=== PATIENT | female | born 1990 | race Caucasian/White ===

== ENCOUNTER 2017-12-16 22:06 | Emergency (ER) | payer SELFPAY ==
[2015-03-17 11:26] VITALS: Wt 75.5 kg
[~2017-12-16 22:06] MED LIST: ACET-2327 PO; ACET5ELI PO; ADV100/50 INH; ALB17R INH; ALB18R INH; ALBUTEROL INHALER; AMOX-362 PO; AMOX500C7 PO; AMOX500T10 PO; AYGESTIN; AZIT1PAC21 PO; BENZ100C26 PO; BENZ100C4 PO; BIRTH CONTROL; BUSP30TA PO; CALC-487 PO; CEP500 PO; CEPH500T7 PO; CET10 PO; CIP500 PO; CIT20 PO; COM14R IH; CYC10 PO; CYCL-343 PO; CYCL10TA29 PO; DEPO-LUPRON; DEPOLUPRON IM; DICL-195 PO; DIPH-1 PO; DIV500ER PO; DOXY-179 PO; DOXY-228 PO; DUL20 PO; EPIN0.3P14 IM; ERYT400T73 PO; ETON68IM2; FLU44R IH; GAB300 PO; HYDR-3078 PO; HYDR-317 PO; HYDR-385 PO; HYDR-4309 PO; HYDR115S2 PO; HYDR25CA83 PO; HYDR2TAB42 PO; HYDR2TAB74 PO; IBU600 PO; IBU800 PO; IBUP-56 PO; IBUP800T37 PO; KET10 PO; KETO10TA PO; LOR5 PO; LOR5/325 PO; MED150I; MED150I IM; METH4TAB57 PO; METR-1 PO; MON10 PO; MUCINEX; MULT-1067 PO; MULT-1085 PO; MULT1TAB67 PO; NAP500; NAPR220C12 PO; NIT100 PO; NORE0.3516 PO; OND4 PO; ONDA4TAB PO; ONDA4TAB97 PO; ORAGEL; ORP100 PO; OXYC5TAB38 PO; OXYM22SP3 NS; PAN20 PO; PARO-242 PO; PER PO; PHENA200 PO; PNV1TABL92 PO; PRE20 PO; PRED20TA6 PO; PREN-85 PO; PROAIRPT IH; PROM-100 PO; TRA50 PO; TRAM-420 PO; TRAM-627 PO; TRAZ-156 PO; [UNRECOGNIZED DRUG - CODE]; [UNRECOGNIZED DRUG - CODE] PO; [UNRECOGNIZED DRUG - CODE] TD; [UNRECOGNIZED DRUG - OTHER]; [UNRECOGNIZED DRUG - OTHER] OP
--- NOTE | 2017-12-16 22:16 | ER Report ---
History and Physical Time Seen By MD: 22:15 Hx. of Stated Complaint: patient states she started having pain in her right side of chest on Saturday, she states that this morning she started having pain on left side of chest, patient just thought maybe it was heartburn, but those meds have not helped, patient states it hurts when she is breathing. HPI/ROS CHIEF COMPLAINT: Chest pain HISTORY OF PRESENT ILLNESS: 27-year-old female presents with left-sided chest pain. It actually started on the right side of her chest 2 days ago on the right side. It moved over to the left side. She's had no fever or productive cough. She's had no leg swelling or calf pain. Patient notes sharp 7/10 pain in her left chest near the lateral aspect of her breast radiating to her back and her left arm. She notes no exertional component. She recalls no injury. REVIEW OF SYSTEMS: Respiratory: No cough, no dyspnea. Cardiovascular: As above Gastrointestinal: No vomiting, no abdominal pain. Musculoskeletal: No back pain. Allergies: Coded Allergies: Sulfa (Sulfonamide Antibiotics) (Unverified Allergy, Intermediate, UNKNOWN , 12/16/17) prochlorperazine (Unverified Allergy, Intermediate, UNKNOWN, 12/16/17) promethazine (Verified Allergy, Intermediate, UNKNOWN, 12/16/17) codeine (Unverified Allergy, Unknown, UNKNOWN, 12/16/17) Home Meds Active Scripts Methocarbamol (ROBAXIN-750) 750 Mg Tablet, 1 TAB PO TID Y for muscle spasm relief, #15 Prov:PIA ALDANA DO 12/16/17 Hydrocodone Bit/Acetaminophen (HYDROCODON-ACETAMINOPHEN 5-325) 1 Each Tablet, 1 EACH PO Q4-6H Y for PAIN, #10 TAKE ONE TABLET BY MOUTH EVERY 4-6 HOURS NEEDED FOR PAIN Prov:PIA ALDANA DO 12/16/17 Prednisone (PREDNISONE) 20 Mg Tablet, 20 MG PO BID, #10 TAB Prov:CLAUDINE PARHAM 02/09/17 Hydrocodone Bit/Acetaminophen (HYDROCODON-ACETAMINOPHEN 5-325) 1 Each Tablet, 1 EACH PO Q4-6H Y for PAIN, #12 TAB Prov:CLAUDINE PARHAM 02/09/17 Diclofenac Sodium (DICLOFENAC SODIUM) 75 Mg Tablet.dr, 75 MG PO BID, #20 TAB Prov:CLAUDINE PARHAM [facility] 05/10/16 Hydrocodone Bit/Acetaminophen (NORCO 5-325 TABLET) 1 Each Tablet, 1 EACH PO Q4- 6H Y for PAIN, #12 TAB Prov:CLAUDINE PARHAM [facility] 05/10/16 Cephalexin 500 Mg Tab (KEFLEX 500 MG TAB) 500 Mg Tablet, 500 MG PO Q6H, #28 TAB Prov:CLAUDINE PARHAM [facility] 05/10/16 Tramadol Hcl (TRAMADOL HCL) 50 Mg Tablet, 50-100 MG PO Q4-6H for PAIN, #20 TAB Prov:SHAY NELSON 04/11/16 Ondansetron (ZOFRAN ODT) 4 Mg Tab.rapdis, 4 MG PO Q6-8H for Nausea, #15 TAB.EVON Prov:SHAY NELSON 04/11/16 Cyclobenzaprine Hcl (CYCLOBENZAPRINE HCL) 10 Mg Tablet, 10 MG PO TID, #21 TAB Prov:SHAY NELSON 04/11/16 Ibuprofen (IBUPROFEN) 800 Mg Tablet, 1 TAB PO Q8H for PAIN, #60 TAB Prov:SHAY NELSON 04/11/16 Hydroxyzine Pamoate (VISTARIL) 25 Mg Capsule, 25-50 MG PO Q6H for PAIN, #30 CAPSULE Prov:SHAY NELSON 04/11/16 Oxycodone Hcl (OXYCODONE HCL) 5 Mg Tablet, 5 MG PO Q4H Y for PAIN, #15 Prov:PIA ALDANA DO 02/06/16 Reviewed Nurses Notes: Yes Old Medical Records Reviewed: Yes Hx Smoking: Yes Smoking Status: Current: Every Day Smoker Exposure to Second Hand Smoke?: Yes Hx Substance Use Disorder: No Hx Alcohol Use: Yes Constitutional Vital Sign - Last 24 Hours 12/16/17 12/16/17 12/16/17 12/16/17 22:11 22:21 22:30 22:41 Temp 98.1 Pulse 69 59 Resp 24 16 B/P (MAP) 125/76 114/66 (82) 108/63 (78) Pulse Ox 96 97 12/16/17 12/16/17 12/16/17 23:00 23:06 23:11 Pulse 61 60 Resp 10 7 B/P (MAP) 109/81 (90) Pulse Ox 97 97 Physical Exam General Appearance: The patient is alert, has no immediate need for airway protection and no current signs of toxicity. HEENT: Pupils equal and round no injection. TMs normal, oropharynx without redness or exudate Respiratory: Chest is non tender, lungs are clear to auscultation.+ Chest wall tenderness Cardiac: regular rate and rhythm Gastrointestinal: Abdomen is soft and non tender, no masses, bowel sounds normal. Musculoskeletal: Neck: Neck is supple and non tender. Extremities have full range of motion and are non tender. Skin: No rashes or lesions. DIFFERENTIAL DIAGNOSIS: After history and physical exam differential diagnosis was considered for chest pain including but not limited to myocardial ischemia, pericarditis pulmonary embolus, chest wall pain, pleural inflammation and pulmonary infectious causes. Medical Decision Making Data Points Result Diagram: 12/16/17221912/16/172219 Laboratory Hematology Test 12/16/17 22:20 Red Blood Count 5.00 M/uL (4.17-5.56) Mean Corpuscular Volume 88.8 fL (80.0-96.0) Mean Corpuscular Hemoglobin 30.5 pg (26.0-33.0) Mean Corpuscular Hemoglobin Concent 34.3 g/dL (32.0-36.0) Red Cell Distribution Width 13.4 % (11.5-14.5) Mean Platelet Volume 7.1 fL (7.2-11.1) Neutrophils (%) (Auto) 67.0 % (39.4-72.5) Lymphocytes (%) (Auto) 24.1 % (17.6-49.6) Monocytes (%) (Auto) 6.1 % (4.1-12.4) Eosinophils (%) (Auto) 1.9 % (0.4-6.7) Basophils (%) (Auto) 0.9 % (0.3-1.4) Nucleated RBC Relative Count (auto) 0.0 /100WBC Neutrophils # (Auto) 8.6 K/uL (2.0-7.4) Lymphocytes # (Auto) 3.1 K/uL (1.3-3.6) Monocytes # (Auto) 0.8 K/uL (0.3-1.0) Eosinophils # (Auto) 0.2 K/uL (0.0-0.5) Basophils # (Auto) 0.1 K/uL (0.0-0.1) Nucleated RBC Absolute Count (auto) 0.00 K/uL D-Dimer Quantitative (PE/DVT) < 0.27 ug/ml (0-0.50) Sodium Level 142 mmol/L (137-145) Potassium Level 3.3 mmol/L (3.5-5.0) Chloride Level 104 mmol/L (98-107) Carbon Dioxide Level 28 mmol/L (22-31) Blood Urea Nitrogen 8 mg/dl (7-18) Creatinine 0.80 mg/dl (0.52-1.04) Glomerular Filtration Rate Calc > 60.0 Random Glucose 89 mg/dl (75-110) Calcium Level 9.2 mg/dl (8.4-10.2) Total Bilirubin 0.5 mg/dl (0.2-1.3) Aspartate Amino Transf (AST/SGOT) 23 U/L (0-35) Alanine Aminotransferase (ALT/SGPT) 28 U/L (0-56) Alkaline Phosphatase 64 U/L (0-126) Troponin I < 0.012 ng/ml Total Protein 7.0 g/dl (6.3-8.2) Albumin 3.9 g/dl (3.5-5.0) Human Chorionic Gonadotropin, Qual Negative (NEGATIVE) Chemistry Test 12/16/17 22:20 White Blood Count 12.8 k/uL (4.5-11.0) Red Blood Count 5.00 M/uL (4.17-5.56) Hemoglobin 15.2 g/dL (12.0-16.0) Hematocrit 44.4 % (34.0-47.0) Mean Corpuscular Volume 88.8 fL (80.0-96.0) Mean Corpuscular Hemoglobin 30.5 pg (26.0-33.0) Mean Corpuscular Hemoglobin Concent 34.3 g/dL (32.0-36.0) Red Cell Distribution Width 13.4 % (11.5-14.5) Platelet Count 343 K/uL (150-450) Mean Platelet Volume 7.1 fL (7.2-11.1) Neutrophils (%) (Auto) 67.0 % (39.4-72.5) Lymphocytes (%) (Auto) 24.1 % (17.6-49.6) Monocytes (%) (Auto) 6.1 % (4.1-12.4) Eosinophils (%) (Auto) 1.9 % (0.4-6.7) Basophils (%) (Auto) 0.9 % (0.3-1.4) Nucleated RBC Relative Count (auto) 0.0 /100WBC Neutrophils # (Auto) 8.6 K/uL (2.0-7.4) Lymphocytes # (Auto) 3.1 K/uL (1.3-3.6) Monocytes # (Auto) 0.8 K/uL (0.3-1.0) Eosinophils # (Auto) 0.2 K/uL (0.0-0.5) Basophils # (Auto) 0.1 K/uL (0.0-0.1) Nucleated RBC Absolute Count (auto) 0.00 K/uL D-Dimer Quantitative (PE/DVT) < 0.27 ug/ml (0-0.50) Glomerular Filtration Rate Calc > 60.0 Calcium Level 9.2 mg/dl (8.4-10.2) Total Bilirubin 0.5 mg/dl (0.2-1.3) Aspartate Amino Transf (AST/SGOT) 23 U/L (0-35) Alanine Aminotransferase (ALT/SGPT) 28 U/L (0-56) Alkaline Phosphatase 64 U/L (0-126) Troponin I < 0.012 ng/ml Total Protein 7.0 g/dl (6.3-8.2) Albumin 3.9 g/dl (3.5-5.0) Human Chorionic Gonadotropin, Qual Negative (NEGATIVE) Coagulation Test 12/16/17 22:20 D-Dimer Quantitative (PE/DVT) < 0.27 ug/ml EKG/Imaging EKG Interpretation 12 lead EK Rhythm: NSR with sinus arrhythmia, rate 70 bpm [place]: Rightward axis QRS: normal ST segments: normal, no evidence of ischemia or dysrhythmia Imaging X-ray: Two-view chest x-ray was obtained. I viewed the images myself on the PACS system. My interpretation of the images is: Infiltrate, no effusion, normal mediastinum. The radiologist interpretation had no clinically significant variation from this interpretation. ED Course/Re-evaluation ED Course Patient was admitted to an examination room. H&P was done. The differential diagnoses was considered. Patient with fairly sharp acute left-sided chest pain. It started 2 days ago . It started on the right side and moved over. Patient's had no fever, chills or productive cough. It seems more musculoskeletal in nature. Patient's EKG, troponin and d-dimer are negative. Patient's medicated with Toradol, Zofran and fentanyl 50 Daryl or grams IV. She' ll be discharged home on Robaxin and hydrocodone. Patient advised to take ibuprofen 600 mg 3 times daily and apply heating pad to the affected area. Patient advised to follow-up with primary care if unimproved in 3-5 days. Decision to Disposition Date: Dec 16, 2017 Decision to Disposition Time: 22:51 Depart Departure Latest Vital Signs Vital Signs Date Time Temp Pulse Resp B/P (MAP) Pulse Ox O2 Delivery O2 Flow Rate FiO2 12/16/17 23:11 60 7 97 12/16/17 23:00 109/81 (90) 12/16/17 22:11 98.1 Impression: Primary Impression: Chest wall pain Additional Impression: Back pain Condition: Improved Disposition: HOME OR SELF-CARE Referrals: TERESA GUZMAN MD, FARRUKH MD New Scripts Methocarbamol (ROBAXIN-750) 750 Mg Tablet 1 TAB PO TID Y for muscle spasm relief, #15 Prov: PIA ALDANA DO 12/16/17 Hydrocodone Bit/Acetaminophen (HYDROCODON-ACETAMINOPHEN 5-325) 1 Each Tablet 1 EACH PO Q4-6H Y for PAIN, #10 TAKE ONE TABLET BY MOUTH EVERY 4-6 HOURS NEEDED FOR PAIN Prov: PIA ALDANA DO 12/16/17 Patient Instructions: Chest Wall Pain (GEN), Thoracic Back Strain (ED) Additional Instructions: Take ibuprofen 200 mg 3-4 tablets 3 times a day with food Apply heating pad to your back and chest Use medications as prescribed Follow-up with primary care if unimproved in 3-5 days Problem Qualifiers Additional Impression: Back pain Back pain location: thoracic back pain Chronicity: acute Back pain laterality: left Qualified Codes: M54.6 - Pain in thoracic spine PIA ALDANA DO Dec 16, 2017 22:16
[2017-12-16] MEDS ORDERED: KETOROLAC 30 MG/ML VIAL IVP ONE (22:20)
[2017-12-16 22:30] LABS: PLATELET COUNT, AUTOMATED 343 K/uL (150-450)
[2017-12-16] MEDS ORDERED: fentaNYL CITR 100 MCG/2 ML AMP IVP ONE (22:50)
[2017-12-16] MEDS ORDERED: LOR5/325 PO (22:54)
[2017-12-16] MEDS ORDERED: METH-543 PO (22:54)
[2017-12-16] MEDS ORDERED: ACET/HYDROC 5/325MG TH ER ONLY 2 TAB/BOTTLE PO ONE (22:55)
--- NOTE | 2017-12-16 22:58 | EKG ---
FACILITY: [facility] - [place] PATIENT NAME: CORKY MURILLO : [id number] MR: [id number] V: [id number] EXAM DATE: ORDERING PHYSICIAN: PIA ALDANA TECHNOLOGIST: Test Reason : Blood Pressure : / mmHG Vent. Rate : 070 BPM Atrial Rate : 070 BPM P-R Int : 162 ms QRS Dur : 088 ms QT Int : 426 ms P-R-T Axes : 070 090 065 degrees QTc Int : 460 ms Normal sinus rhythm with sinus arrhythmia Rightward axis Borderline ECG No previous ECGs available Confirmed by JOZEF HAWLEY ([id number]) on 12/17/2017 6:28:04 AM Referred By: Confirmed By:JOZEF HAWLEY
[2017-12-16 23:00] VITALS: BP 109/81
--- NOTE | 2017-12-16 23:12 | RADIOLOGY IMAGING REPORT ---
[place] [facility] [place] NAME: Ju Cabrera : 1990 MR: [id number] V: [id number] EXAM DATE: ORDERING PHYSICIAN: PIA ALDANA TECHNOLOGIST: [place] [facility] [place] Ju Cabrera : 1990 Visit/Account:[id number] Date of Sevice: 12/16/2017 TWO VIEW CHEST 12/16/2017 10:20 PM. INDICATION: Sudden onset chest pain. COMPARISON: 04/11/2016. FINDINGS: Lungs are well-expanded. The lungs are clear. No pneumothorax or pleural effusion. Pulmo nary vasculature is unremarkable. Heart size is normal. IMPRESSION: Normal. Report Dictated By: Satish Mccollum MD at 12/16/2017 11:07 PM Report E-Signed By: Satish Mccollum MD at 12/16/2017 11:09 PM WSN:[id number]
== END 2017-12-16 23:30 | disposition home or self-care (01) ==
LOC: ER 22:21
DX: R07.89 Other chest pain (principal); M54.6 Pain in thoracic spine; F17.210 Nicotine dependence, cigarettes, uncomplicated
CPT/HCPCS: 71046; 84484; 84703; 85025; 85379; 93005; 96374; 96375; 99284; J1885; J3010; 82040; 82247; 82310; 82374; 82435; 82565; 82947; 84075; 84132; 84155; 84295; 84450; 84460; 84520

== ENCOUNTER 2018-02-11 12:47 | Emergency (ER) | payer SELFPAY ==
[2015-03-17 11:26] VITALS: Wt 75.5 kg
[~2018-02-11 12:47] MED LIST changes: +METH-543 PO; -TRAZ-156 PO; +TRAZ50TA34 PO
[2018-02-11 12:55] VITALS: BP 114/83
--- NOTE | 2018-02-11 13:11 | ER Report ---
History and Physical Time Seen By MD: 13:10 Hx. of Stated Complaint: Dental pain. 1000mg Tyelnol and 600mg Ibuprofen at 1200 HPI/ROS CHIEF COMPLAINT: Tooth pain HISTORY OF PRESENT ILLNESS: 27-year-old female patient presents to emergency room with complaint of dental pain. Patient states that this tooth has been bothering her for the past several days. She states she's tried Anbesol and Orajel with no improvement. Patient states she is taken Tylenol ibuprofen also if no improvement. Patient states that she would just like something to help so she can go to work this evening. Patient denies having any fevers, chills, nausea, vomiting or diarrhea. Patient states that her pain is significant. Allergies: Coded Allergies: Sulfa (Sulfonamide Antibiotics) (Unverified Allergy, Intermediate, UNKNOWN , 02/11/18) prochlorperazine (Unverified Allergy, Intermediate, UNKNOWN, 02/11/18) promethazine (Verified Allergy, Intermediate, UNKNOWN, 02/11/18) codeine (Unverified Allergy, Unknown, UNKNOWN, 02/11/18) Home Meds Active Scripts Hydrocodone Bit/Acetaminophen (HYDROCODON-ACETAMINOPHEN 5-325) 1 Each Tablet, 1 EACH PO Q4-6H Y for PAIN, #6 TAB Prov:CLAUDINE PARHAM [facility] 02/11/18 Amoxicillin 500 Mg Tab (AMOXICILLIN 500 MG TAB) 500 Mg Tablet, 1 TAB PO Q8H, # 30 TAB Prov:CLAUDINE PARHAM [employer] 02/11/18 Discontinued Scripts Methocarbamol (ROBAXIN-750) 750 Mg Tablet, 1 TAB PO TID Y for muscle spasm relief, #15 Prov:PIA ALDANA DO 12/16/17 Hydrocodone Bit/Acetaminophen (HYDROCODON-ACETAMINOPHEN 5-325) 1 Each Tablet, 1 EACH PO Q4-6H Y for PAIN, #10 TAKE ONE TABLET BY MOUTH EVERY 4-6 HOURS NEEDED FOR PAIN Prov:PIA ALDANA DO 12/16/17 Prednisone (PREDNISONE) 20 Mg Tablet, 20 MG PO BID, #10 TAB Prov:CLAUDINE PARHAM [facility] 02/09/17 Hydrocodone Bit/Acetaminophen (HYDROCODON-ACETAMINOPHEN 5-325) 1 Each Tablet, 1 EACH PO Q4-6H Y for PAIN, #12 TAB Prov:CLAUDINE PARHAM [facility] 02/09/17 Diclofenac Sodium (DICLOFENAC SODIUM) 75 Mg Tablet.dr, 75 MG PO BID, #20 TAB Prov:CLAUDINE PARHAM [facility] 05/10/16 Hydrocodone Bit/Acetaminophen (NORCO 5-325 TABLET) 1 Each Tablet, 1 EACH PO Q4- 6H Y for PAIN, #12 TAB Prov:CLAUDINE PARHAM [facility] 05/10/16 Cephalexin 500 Mg Tab (KEFLEX 500 MG TAB) 500 Mg Tablet, 500 MG PO Q6H, #28 TAB Prov:CLAUDINE PARHAM [facility] 05/10/16 Tramadol Hcl (TRAMADOL HCL) 50 Mg Tablet, 50-100 MG PO Q4-6H for PAIN, #20 TAB Prov:SHAY NELSON 04/11/16 Ondansetron (ZOFRAN ODT) 4 Mg Tab.rapdis, 4 MG PO Q6-8H for Nausea, #15 TAB.EVON Prov:SHAY NELSON 04/11/16 Cyclobenzaprine Hcl (CYCLOBENZAPRINE HCL) 10 Mg Tablet, 10 MG PO TID, #21 TAB Prov:SHAY NELSON 04/11/16 Ibuprofen (IBUPROFEN) 800 Mg Tablet, 1 TAB PO Q8H for PAIN, #60 TAB Prov:SHAY NELSON 04/11/16 Hydroxyzine Pamoate (VISTARIL) 25 Mg Capsule, 25-50 MG PO Q6H for PAIN, #30 CAPSULE Prov:SHAY NELSON 04/11/16 Oxycodone Hcl (OXYCODONE HCL) 5 Mg Tablet, 5 MG PO Q4H Y for PAIN, #15 Prov:PIA ALDANA DO 02/06/16 Past Medical/Surgical History Patient has a past medical history of migraines, asthma, pneumonia, reflux, back pain, alcohol use, anxiety. Patient has a surgical history of hysterectomy, laparoscopy, deviated septum, tonsillectomy. Patient has a family medical history of cancer, stroke, diabetes Reviewed Nurses Notes: Yes Hx Smoking: Yes Smoking Status: Current: Every Day Smoker Exposure to Second Hand Smoke?: Yes Hx Substance Use Disorder: No Hx Alcohol Use: Yes Constitutional Vital Sign - Last 24 Hours 02/11/18 12:55 Pulse 95 Resp 22 B/P (MAP) 114/83 Pulse Ox 97 Physical Exam General appearance: Alert no distress. Patient is tearful. Respiratory: Chest is non tender, lungs are clear to auscultation. Cardiac: Regular rate and rhythm ENT: Tympanic membranes are pearly-guzman, auditory canals are patent, mucous membranes are moist. Patient has port intention with several cavities. Tooth #6 is broken off and tender. DIFFERENTIAL DIAGNOSIS: After history and physical exam differential diagnosis was considered for dental abscess, dental infection. Medical Decision Making ED Course/Re-evaluation ED Course Patient was admitted to an exam room, history and physical were obtained. Differential diagnoses were considered. On examination patient has poor dentition, tooth #6 is broken off, is tender to touch. I offered a dental block which patient agreed to. Patient was treated with 2.5 mL of 0.5% of bupivacaine and 2.5 mL of lidocaine with epi. Patient stated that that did help for short. Time, however she felt like the pain with certain come back. We will go ahead and discharge her home at this time with a prescription for antibiotics, amoxicillin and a limited supply of pain medication. Patient is follow-up with a dentist as soon as possible. Decision to Disposition Date: Feb 11, 2018 Decision to Disposition Time: 13:23 Depart Departure Latest Vital Signs Vital Signs Date Time Temp Pulse Resp B/P (MAP) Pulse Ox O2 Delivery O2 Flow Rate FiO2 02/11/18 12:55 95 22 114/83 97 Impression: Primary Impression: Toothache Condition: Improved Disposition: HOME OR SELF-CARE New Scripts Hydrocodone Bit/Acetaminophen (HYDROCODON-ACETAMINOPHEN 5-325) 1 Each Tablet 1 EACH PO Q4-6H Y for PAIN, #6 TAB Prov: CLAUDINE PARHAM 02/11/18 Amoxicillin 500 Mg Tab (AMOXICILLIN 500 MG TAB) 500 Mg Tablet 1 TAB PO Q8H, #30 TAB Prov: CLAUDINE PARHAM 02/11/18 Patient Instructions: Toothache (ED) Additional Instructions: You may take Ibuprofen in addition to the pain medication as needed for pain. Rinse mouth with warm salt water after every meal. Eat soft foods. Follow up with your dentist as soon as possible, call to make an appointment. Return to the ER if condition worsens. CLAUDINE PARHAM Feb 11, 2018 13:10
[2018-02-11] MEDS ORDERED: AMOX500T10 PO (13:21)
[2018-02-11] MEDS ORDERED: HYDR-385 PO (13:23)
== END 2018-02-11 13:55 | disposition home or self-care (01) ==
LOC: ER 13:03
DX: K08.89 Other specified disorders of teeth and supporting structures (principal)
CPT/HCPCS: 96372

== ENCOUNTER 2018-03-24 08:43 | Emergency (ER) | payer SELFPAY ==
[2015-03-17 11:26] VITALS: Wt 75.5 kg
[2018-03-24] MEDS ORDERED: NS(*) 0.9% 1000 ML BAG 1,000 ML IV ONE (09:00)
[2018-03-24] MEDS ORDERED: KETOROLAC 15 MG/ML VIAL IVP ONE (09:00)
[2018-03-24 09:07] LABS: PLATELET COUNT, AUTOMATED 355 K/uL (150-450)
[2018-03-24 10:00] VITALS: BP 111/82
--- NOTE | 2018-03-24 10:12 | ER Report ---
History and Physical Time Seen By MD: 09:00 Hx. of Stated Complaint: RLQ PAIN AND DIARRHEA FOR TWO WEEKS. HPI/ROS CHIEF COMPLAINT: lower abdominal pain HISTORY OF PRESENT ILLNESS: Patient is status post partial hysterectomy due to endometriosis and bleeding, and presents with 2 weeks of right adnexal pain that she states has been constant, not associated with movement, causing some nausea, associated with loose stools that are not bloody or black. Pt has had similar; not sudden onset, not worst of life. No vomiting, no fevers. REVIEW OF SYSTEMS: Constitutional: No fever, no chills. Eyes: No discharge. ENT: No sore throat. Cardiovascular: No chest pain, no palpitations. Respiratory: No cough, no shortness of breath. Gastrointestinal: nausea, loose bowel movements. Genitourinary: No hematuria. Musculoskeletal: No back pain. Skin: No rashes. Neurological: No headache. Remainder of the 14 system rev: Yes Allergies: Coded Allergies: Sulfa (Sulfonamide Antibiotics) (Unverified Allergy, Intermediate, UNKNOWN, 03/24/18) prochlorperazine (Unverified Allergy, Intermediate, UNKNOWN, 03/24/18) promethazine (Verified Allergy, Intermediate, UNKNOWN, 03/24/18) codeine (Unverified Allergy, Unknown, UNKNOWN, 03/24/18) Home Meds Discontinued Scripts Hydrocodone Bit/Acetaminophen (HYDROCODON-ACETAMINOPHEN 5-325) 1 Each Tablet, 1 EACH PO Q4-6H PRN for PAIN, #6 TAB Prov:CLAUDINE PARHAM 02/11/18 Amoxicillin 500 Mg Tab (AMOXICILLIN 500 MG TAB) 500 Mg Tablet, 1 TAB PO Q8H, #30 TAB Prov:CLAUDINE PARHAM 02/11/18 Reviewed Nurses Notes: Yes Hx Smoking: Yes Smoking Status: Current: Every Day Smoker Exposure to Second Hand Smoke?: Yes Hx Substance Use Disorder: No Hx Alcohol Use: Yes Constitutional Vital Sign - Last 24 Hours 03/24/18 03/24/18 03/24/18 03/24/18 08:46 08:46 09:00 09:15 Temp 98.8 Pulse 74 76 67 Resp 18 B/P (MAP) 109/76 (87) 109/76 114/70 (85) Pulse Ox 95 99 96 O2 Delivery Room Air 03/24/18 09:30 Pulse 64 B/P (MAP) 99/67 (78) Pulse Ox 97 Physical Exam General Appearance: The patient is alert, has no immediate need for airway protection and no signs of toxicity. [ ] Eyes: Pupils equal and round no pallor or injection. ENT, Mouth: Mucous membranes are moist. Respiratory: There are no retractions, lungs are clear to auscultation. Cardiovascular: Regular rate and rhythm. [ ] Gastrointestinal: right adnex ttp, no rlq or abdominal ttp. Neurological: alert, oriented x 3 Skin: Warm and dry, no rashes. Musculoskeletal: Neck is supple non tender. Extremities are nontender, nonswollen and have full range of motion. DIFFERENTIAL DIAGNOSIS: After history and physical exam differential diagnosis was considered for ovarian torsion, cyst, toa, stump appendicitis or other emergent etiology. Medical Decision Making Data Points Result Diagram: 03/24/18 0850 03/24/18 0850 Laboratory Hematology Test 03/24/18 08:50 03/24/18 09:44 Red Blood Count 5.10 M/uL (4.17-5.56) Mean Corpuscular Volume 89.0 fL (80.0-96.0) Mean Corpuscular Hemoglobin 29.9 pg (26.0-33.0) Mean Corpuscular Hemoglobin Concent 33.6 g/dL (32.0-36.0) Red Cell Distribution Width 14.0 % (11.5-14.5) Mean Platelet Volume 7.5 fL (7.2-11.1) Neutrophils (%) (Auto) 65.3 % (39.4-72.5) Lymphocytes (%) (Auto) 25.5 % (17.6-49.6) Monocytes (%) (Auto) 6.7 % (4.1-12.4) Eosinophils (%) (Auto) 1.7 % (0.4-6.7) Basophils (%) (Auto) 0.8 % (0.3-1.4) Nucleated RBC Relative Count (auto) 0.0 /100WBC Neutrophils # (Auto) 4.6 K/uL (2.0-7.4) Lymphocytes # (Auto) 1.8 K/uL (1.3-3.6) Monocytes # (Auto) 0.5 K/uL (0.3-1.0) Eosinophils # (Auto) 0.1 K/uL (0.0-0.5) Basophils # (Auto) 0.1 K/uL (0.0-0.1) Nucleated RBC Absolute Count (auto) 0.00 K/uL Sodium Level 142 mmol/L (137-145) Potassium Level 4.1 mmol/L (3.5-5.0) Chloride Level 107 mmol/L (98-107) Carbon Dioxide Level 26 mmol/L (22-31) Blood Urea Nitrogen 14 mg/dl (7-18) Creatinine 0.80 mg/dl (0.52-1.04) Glomerular Filtration Rate Calc > 60.0 Random Glucose 81 mg/dl (75-110) Calcium Level 9.5 mg/dl (8.4-10.2) Total Bilirubin 1.0 mg/dl (0.2-1.3) Aspartate Amino Transf (AST/SGOT) 17 U/L (0-35) Alanine Aminotransferase (ALT/SGPT) 24 U/L (0-56) Alkaline Phosphatase 64 U/L (0-126) Total Protein 7.4 g/dl (6.3-8.2) Albumin 4.2 g/dl (3.5-5.0) Human Chorionic Gonadotropin, Qual Negative (NEGATIVE) Urine Color Yellow Urine Clarity Slightly-cloudy Urine pH 6.0 pH (4.8-9.5) Urine Specific [place] 1.017 Urine Protein Negative mg/dL (NEGATIVE) Urine Glucose (UA) Negative mg/dL (NEGATIVE) Urine Ketones Negative mg/dL (NEGATIVE) Urine Blood Negative (NEGATIVE) Urine Nitrite Negative (NEGATIVE) Urine Bilirubin Negative (NEGATIVE) Urine Urobilinogen 2.0 mg/dL (0.2-1.9) Urine Leukocyte Esterase Negative (NEGATIVE) Urine RBC 1 /HPF (0-2/HPF) Urine WBC 1 /HPF (0-5/HPF) Urine Squamous Epithelial Cells Many /LPF (</=FEW) Urine Bacteria Few /HPF (NONE-FEW) Urine Mucus Few /HPF (NONE-FEW) Chemistry Test 03/24/18 08:50 03/24/18 09:44 White Blood Count 7.0 k/uL (4.5-11.0) Red Blood Count 5.10 M/uL (4.17-5.56) Hemoglobin 15.2 g/dL (12.0-16.0) Hematocrit 45.4 % (34.0-47.0) Mean Corpuscular Volume 89.0 fL (80.0-96.0) Mean Corpuscular Hemoglobin 29.9 pg (26.0-33.0) Mean Corpuscular Hemoglobin Concent 33.6 g/dL (32.0-36.0) Red Cell Distribution Width 14.0 % (11.5-14.5) Platelet Count 355 K/uL (150-450) Mean Platelet Volume 7.5 fL (7.2-11.1) Neutrophils (%) (Auto) 65.3 % (39.4-72.5) Lymphocytes (%) (Auto) 25.5 % (17.6-49.6) Monocytes (%) (Auto) 6.7 % (4.1-12.4) Eosinophils (%) (Auto) 1.7 % (0.4-6.7) Basophils (%) (Auto) 0.8 % (0.3-1.4) Nucleated RBC Relative Count (auto) 0.0 /100WBC Neutrophils # (Auto) 4.6 K/uL (2.0-7.4) Lymphocytes # (Auto) 1.8 K/uL (1.3-3.6) Monocytes # (Auto) 0.5 K/uL (0.3-1.0) Eosinophils # (Auto) 0.1 K/uL (0.0-0.5) Basophils # (Auto) 0.1 K/uL (0.0-0.1) Nucleated RBC Absolute Count (auto) 0.00 K/uL Glomerular Filtration Rate Calc > 60.0 Calcium Level 9.5 mg/dl (8.4-10.2) Total Bilirubin 1.0 mg/dl (0.2-1.3) Aspartate Amino Transf (AST/SGOT) 17 U/L (0-35) Alanine Aminotransferase (ALT/SGPT) 24 U/L (0-56) Alkaline Phosphatase 64 U/L (0-126) Total Protein 7.4 g/dl (6.3-8.2) Albumin 4.2 g/dl (3.5-5.0) Human Chorionic Gonadotropin, Qual Negative (NEGATIVE) Urine Color Yellow Urine Clarity Slightly-cloudy Urine pH 6.0 pH (4.8-9.5) Urine Specific [place] 1.017 Urine Protein Negative mg/dL (NEGATIVE) Urine Glucose (UA) Negative mg/dL (NEGATIVE) Urine Ketones Negative mg/dL (NEGATIVE) Urine Blood Negative (NEGATIVE) Urine Nitrite Negative (NEGATIVE) Urine Bilirubin Negative (NEGATIVE) Urine Urobilinogen 2.0 mg/dL (0.2-1.9) Urine Leukocyte Esterase Negative (NEGATIVE) Urine RBC 1 /HPF (0-2/HPF) Urine WBC 1 /HPF (0-5/HPF) Urine Squamous Epithelial Cells Many /LPF (</=FEW) Urine Bacteria Few /HPF (NONE-FEW) Urine Mucus Few /HPF (NONE-FEW) Urinalysis Test 03/24/18 09:44 Urine Color Yellow Urine Clarity Slightly-cloudy Urine pH 6.0 pH (4.8-9.5) Urine Specific [place] 1.017 Urine Protein Negative mg/dL (NEGATIVE) Urine Glucose (UA) Negative mg/dL (NEGATIVE) Urine Ketones Negative mg/dL (NEGATIVE) Urine Blood Negative (NEGATIVE) Urine Nitrite Negative (NEGATIVE) Urine Bilirubin Negative (NEGATIVE) Urine Urobilinogen 2.0 mg/dL (0.2-1.9) Urine Leukocyte Esterase Negative (NEGATIVE) Urine RBC 1 /HPF (0-2/HPF) Urine WBC 1 /HPF (0-5/HPF) Urine Squamous Epithelial Cells Many /LPF (</=FEW) Urine Bacteria Few /HPF (NONE-FEW) Urine Mucus Few /HPF (NONE-FEW) ED Course/Re-evaluation ED Course Patient presents with 2 weeks of ongoing symptoms that have not acutely worsened. While I considered the diagnosis as above, low likelihood for emergent etiology especially given that she is status post hysterectomy and has not had vaginal discharge, and status post appendectomy. No peritoneal signs on exam, labs and ultrasound unremarkable. On reassessment patient is comfortable. At this point I recommend follow-up with primary physician and fitting room associate and reevaluation as well as strict return precautions. Patient is comfortable with this plan. Decision to Disposition Date: Mar 24, 2018 Decision to Disposition Time: 10:12 Depart Departure Latest Vital Signs Vital Signs Date Time Temp Pulse Resp B/P (MAP) Pulse Ox O2 Delivery O2 Flow Rate FiO2 03/24/18 09:30 64 99/67 (78) 97 03/24/18 08:46 98.8 18 Room Air Impression: Primary Impression: Abdominal pain Condition: Improved Disposition: HOME OR SELF-CARE New Scripts No Active Prescriptions or Reported Meds Patient Instructions: Pelvic Pain in Women (DC) Problem Qualifiers Primary Impression: Abdominal pain Abdominal location: right lower quadrant Qualified Codes: R10.31 - Right lower quadrant pain JUAN C TIDWELL MD Mar 24, 2018 10:12
--- NOTE | 2018-03-24 10:26 | RADIOLOGY IMAGING REPORT ---
FACILITY: [facility] - [place] PATIENT NAME: Ju Cabrera : 1990 MR: [id number] V: [id number] EXAM DATE: ORDERING PHYSICIAN: JUAN C TIDWELL TECHNOLOGIST: Location: [facility] - [place] Patient: Ju Cabrera : 1990 Visit/Account:[id number] Date of Sevice: 03/24/2018 EXAMINATION: Transvaginal pelvic ultrasound with duplex Doppler evaluation HISTORY: Right-sided pain, status post hysterectomy COMPARISON: CT April 11, 2016 FINDINGS: The uterus is surgically absent. The right ovary measures 2 x 2.6 x 1.9 cm and contains a few follic les. Expected blood flow in the right ovary. The left ovary measures 2.3 x 1.7 x 1.4 cm and contain s a few follicles the largest measuring 1 cm. Expected blood flow in the left ovary. No pelvic fluid or adnexal mass. IMPRESSION: 1. Surgically absent uterus. 2. Normal ovaries. 3. No adnexal mass or pelvic fluid. Report Dictated By: Jeremy Torrez MD at 03/24/2018 10:19 AM Report E-Signed By: Jeremy Torrez MD at 03/24/2018 10:22 AM WSN:[email or web address]
== END 2018-03-24 10:26 | disposition home or self-care (01) ==
LOC: ER 09:11
DX: R10.31 Right lower quadrant pain (principal)
CPT/HCPCS: 76830; 81001; 84703; 85025; 96361; 96374; 99284; J1885; J7030; 82040; 82247; 82310; 82374; 82435; 82565; 82947; 84075; 84132; 84155; 84295; 84450; 84460; 84520

== ENCOUNTER 2018-07-10 08:26 | Emergency (ER) | payer SELFPAY ==
[2015-03-17 11:26] VITALS: Wt 68.2 kg
[~2018-07-10 08:26] MED LIST changes: -HYDR-4309 PO; +HYDR-653 PO
--- NOTE | 2018-07-10 08:29 | ER Report ---
History and Physical Time Seen By MD: 08:29 HPI/ROS CHIEF COMPLAINT: Lump on right lower abdomen HISTORY OF PRESENT ILLNESS: Patient is a 20-year-old female who comes to the emergency department complaining of a lump in her right lower quadrant. Patient had a similar presentation in the process of March 2018. She was seen in the emergency department at that time. No acute pathology was identified at that time it was thought that this was a reactive lymph node possibly from her recent hysterectomy or perhaps due to a diarrheal illness she was experiencing that time. She states that she's been having hot flashes but no true infectious symptoms at this point but it seems like the lump in her abdomen is getting larger and more tender. And it also seems as if she is having some enlargement of her right inguinal lymph nodes as well. Allergies: Coded Allergies: Sulfa (Sulfonamide Antibiotics) (Unverified Allergy, Intermediate, UNKNOWN, 07/10/18) prochlorperazine (Unverified Allergy, Intermediate, UNKNOWN, 07/10/18) promethazine (Verified Allergy, Intermediate, UNKNOWN, 07/10/18) codeine (Unverified Allergy, Unknown, UNKNOWN, 07/10/18) morphine (Verified Adverse Reaction, Unknown, NAUSEA, 07/10/18) Home Meds Active Scripts Cephalexin (KEFLEX) 500 Mg Capsule, 500 MG PO Q6H, #28 CAP 0 Refills TAKE ONE CAPSULE BY MOUTH EVERY SIX HOURS Prov:JUAN C HENDEROSN MD 07/10/18 Past Medical/Surgical History History of endometriosis status post hysterectomy Hx Smoking: Yes Smoking Status: Current: Every Day Smoker Exposure to Second Hand Smoke?: Yes Hx Substance Use Disorder: No Hx Alcohol Use: Yes Constitutional Vital Sign - Last 24 Hours 07/10/18 07/10/18 07/10/18 07/10/18 08:26 08:32 08:32 08:56 Temp 98.8 Pulse ??? 83 69 Resp 14 B/P (MAP) 108/77 (87) 108/77 Pulse Ox 96 94 O2 Delivery Room Air 07/10/18 07/10/18 07/10/18 07/10/18 09:00 09:26 09:30 09:56 Pulse 61 54 B/P (MAP) 103/70 (81) 99/69 (79) Pulse Ox 94 94 Physical Exam General Appearance: The patient is alert, has no immediate need for airway protection and no signs of toxicity. Eyes: Pupils equal and round no pallor or injection. ENT, Mouth: Mucous membranes are moist. Respiratory: There are no retractions, lungs are clear to auscultation. Cardiovascular: Regular rate and rhythm. Gastrointestinal: Abdomen is soft and non tender, no masses, bowel sounds normal. with what appears to be palpable abdominal and inguinal lymph node. There is no overlying erythema or fluctuance. Neurological: Awake and alert Skin: Warm and dry, no rashes. Musculoskeletal: Neck is supple non tender. Extremities are nontender, nonswollen and have full range of motion. Medical Decision Making Data Points Result Diagram: 07/10/18 0923 07/10/18 0923 Laboratory Hematology Test 07/10/18 09:23 07/10/18 10:45 Red Blood Count 5.20 M/uL (4.17-5.56) Mean Corpuscular Volume 89.0 fL (80.0-96.0) Mean Corpuscular Hemoglobin 30.2 pg (26.0-33.0) Mean Corpuscular Hemoglobin Concent 33.9 g/dL (32.0-36.0) Red Cell Distribution Width 13.8 % (11.5-14.5) Mean Platelet Volume 7.7 fL (7.2-11.1) Neutrophils (%) (Auto) 71.3 % (39.4-72.5) Lymphocytes (%) (Auto) 20.4 % (17.6-49.6) Monocytes (%) (Auto) 5.9 % (4.1-12.4) Eosinophils (%) (Auto) 1.9 % (0.4-6.7) Basophils (%) (Auto) 0.5 % (0.3-1.4) Nucleated RBC Relative Count (auto) 0.1 /100WBC Neutrophils # (Auto) 5.0 K/uL (2.0-7.4) Lymphocytes # (Auto) 1.4 K/uL (1.3-3.6) Monocytes # (Auto) 0.4 K/uL (0.3-1.0) Eosinophils # (Auto) 0.1 K/uL (0.0-0.5) Basophils # (Auto) 0.0 K/uL (0.0-0.1) Nucleated RBC Absolute Count (auto) 0.00 K/uL Peripheral Blood Smear Yes Y/N Sodium Level 139 mmol/L (137-145) Potassium Level 4.3 mmol/L (3.5-5.0) Chloride Level 108 mmol/L (98-107) Carbon Dioxide Level 25 mmol/L (22-31) Blood Urea Nitrogen 9 mg/dl (7-18) Creatinine 0.70 mg/dl (0.52-1.04) Glomerular Filtration Rate Calc > 60.0 Random Glucose 73 mg/dl (75-110) Calcium Level 9.5 mg/dl (8.4-10.2) Total Bilirubin 1.4 mg/dl (0.2-1.3) Aspartate Amino Transf (AST/SGOT) 21 U/L (0-35) Alanine Aminotransferase (ALT/SGPT) 26 U/L (0-56) Alkaline Phosphatase 60 U/L (0-126) Total Protein 7.4 g/dl (6.3-8.2) Albumin 4.4 g/dl (3.5-5.0) Lipase 81 U/L (23-300) Urine Color Yellow Urine Clarity Clear Urine pH 6.0 pH (4.8-9.5) Urine Specific [place] S3 Urine Protein Negative mg/dL (NEGATIVE) Urine Glucose (UA) Negative mg/dL (NEGATIVE) Urine Ketones Negative mg/dL (NEGATIVE) Urine Blood Negative (NEGATIVE) Urine Nitrite Negative (NEGATIVE) Urine Bilirubin Negative (NEGATIVE) Urine Urobilinogen Negative mg/dL (0.2-1.9) Urine Leukocyte Esterase Negative (NEGATIVE) Urine RBC None /HPF (0-2/HPF) Urine WBC <1 /HPF (0-5/HPF) Urine Squamous Epithelial Cells Moderate /LPF (</=FEW) Urine Bacteria Negative /HPF (NONE-FEW) Urine Mucus None /HPF (NONE-FEW) Chemistry Test 07/10/18 09:23 07/10/18 10:45 White Blood Count 7.1 k/uL (4.5-11.0) Red Blood Count 5.20 M/uL (4.17-5.56) Hemoglobin 15.7 g/dL (12.0-16.0) Hematocrit 46.3 % (34.0-47.0) Mean Corpuscular Volume 89.0 fL (80.0-96.0) Mean Corpuscular Hemoglobin 30.2 pg (26.0-33.0) Mean Corpuscular Hemoglobin Concent 33.9 g/dL (32.0-36.0) Red Cell Distribution Width 13.8 % (11.5-14.5) Platelet Count 308 K/uL (150-450) Mean Platelet Volume 7.7 fL (7.2-11.1) Neutrophils (%) (Auto) 71.3 % (39.4-72.5) Lymphocytes (%) (Auto) 20.4 % (17.6-49.6) Monocytes (%) (Auto) 5.9 % (4.1-12.4) Eosinophils (%) (Auto) 1.9 % (0.4-6.7) Basophils (%) (Auto) 0.5 % (0.3-1.4) Nucleated RBC Relative Count (auto) 0.1 /100WBC Neutrophils # (Auto) 5.0 K/uL (2.0-7.4) Lymphocytes # (Auto) 1.4 K/uL (1.3-3.6) Monocytes # (Auto) 0.4 K/uL (0.3-1.0) Eosinophils # (Auto) 0.1 K/uL (0.0-0.5) Basophils # (Auto) 0.0 K/uL (0.0-0.1) Nucleated RBC Absolute Count (auto) 0.00 K/uL Peripheral Blood Smear Yes Y/N Glomerular Filtration Rate Calc > 60.0 Calcium Level 9.5 mg/dl (8.4-10.2) Total Bilirubin 1.4 mg/dl (0.2-1.3) Aspartate Amino Transf (AST/SGOT) 21 U/L (0-35) Alanine Aminotransferase (ALT/SGPT) 26 U/L (0-56) Alkaline Phosphatase 60 U/L (0-126) Total Protein 7.4 g/dl (6.3-8.2) Albumin 4.4 g/dl (3.5-5.0) Lipase 81 U/L (23-300) Urine Color Yellow Urine Clarity Clear Urine pH 6.0 pH (4.8-9.5) Urine Specific [place] S3 Urine Protein Negative mg/dL (NEGATIVE) Urine Glucose (UA) Negative mg/dL (NEGATIVE) Urine Ketones Negative mg/dL (NEGATIVE) Urine Blood Negative (NEGATIVE) Urine Nitrite Negative (NEGATIVE) Urine Bilirubin Negative (NEGATIVE) Urine Urobilinogen Negative mg/dL (0.2-1.9) Urine Leukocyte Esterase Negative (NEGATIVE) Urine RBC None /HPF (0-2/HPF) Urine WBC <1 /HPF (0-5/HPF) Urine Squamous Epithelial Cells Moderate /LPF (</=FEW) Urine Bacteria Negative /HPF (NONE-FEW) Urine Mucus None /HPF (NONE-FEW) Urinalysis Test 07/10/18 10:45 Urine Color Yellow Urine Clarity Clear Urine pH 6.0 pH (4.8-9.5) Urine Specific [place] S3 Urine Protein Negative mg/dL (NEGATIVE) Urine Glucose (UA) Negative mg/dL (NEGATIVE) Urine Ketones Negative mg/dL (NEGATIVE) Urine Blood Negative (NEGATIVE) Urine Nitrite Negative (NEGATIVE) Urine Bilirubin Negative (NEGATIVE) Urine Urobilinogen Negative mg/dL (0.2-1.9) Urine Leukocyte Esterase Negative (NEGATIVE) Urine RBC None /HPF (0-2/HPF) Urine WBC <1 /HPF (0-5/HPF) Urine Squamous Epithelial Cells Moderate /LPF (</=FEW) Urine Bacteria Negative /HPF (NONE-FEW) Urine Mucus None /HPF (NONE-FEW) EKG/Imaging Imaging FACILITY: [facility] PATIENT NAME: Ju Cabrera : 1990 MR: [id number] V: [id number] EXAM DATE: ORDERING PHYSICIAN: JUAN C HENDERSON TECHNOLOGIST: Location: [facility] Patient: Ju Cabrera : 1990 Visit/Account:[id number] Date of Sevice: 07/10/2018 ADDENDUM #1 In the subcutaneous fat along the anterior upper pelvic wall is a 1.3 cm hyperattenuating nodule which is abutting the right rectus sheath. There is mild infiltrative changes seen in the surrounding fat. This was not present on the prior CT from March 19, 2015 although a very tiny round hyperdensity is seen in this location on the prior CT from April 11, 2016. Given the clinical history of tenderness to palpation in this region in the mild infiltrative changes seen in the surrounding fat infectious process is favored. Report Dictated By: Hilary Gordon MD at 07/10/2018 10:20 AM Report E-Signed By: Hilary Gordon MD at 07/10/2018 10:[address] ABDOMEN PELVIS W/ CON HISTORY: rlq pain times several months TECHNIQUE: Following administration of IV contrast contiguous axial images acquired through the abdomen/pelvis. Coronal and sagittal reformatting also performed.Dose Lowering Technique One of the following dose optimization techniques was utilized in the performance of this exam: Automated exposure control; adjustment of the mA and/or kV according to the patient's size; or use of an iterative reconstruction technique. Specific details can be referenced in the facility's radiology CT exam operational policy. CONTRAST: 75 mL Isovue-370 COMPARISON: April 11, 2016 FINDINGS: Visualized lung bases: Negative. Hepatobiliary: There is a small area of focal fatty infiltration adjacent to the falciform ligament Spleen: Negative. Adrenals: There is mild thickening of the left adrenal gland appears similar to the prior study Pancreas: Negative. Kidneys ureters or bladder: 1.4 cm cyst upper pole the left kidney Genitalia: Uterus not identified GI: There is no evidence of bowel obstruction or bowel wall thickening. There appears to be a tiny appendiceal stump with no surrounding inflammatory change Vessels/spaces/nodes: Negative. Bones/soft tissues: There are mild sclerotic changes along the inferior aspect of the SI joints that appears stable Additional findings: None pertinent. IMPRESSION: There is no evidence of bowel obstruction or bowel wall thickening. There appears to be a tiny appendiceal stump with no surrounding inflammatory change No evidence of urolithiasis, hydronephrosis or hydroureter Additional chronic findings as described Report Dictated By: Hilary Gordon MD at 07/10/2018 9:51 AM Report E-Signed By: Hilary Gordon MD at 07/10/2018 10:01 AM WSN:[email or web address] ED Course/Re-evaluation ED Course 07/10/2018 9:01:07 am patient with what appears to be palpable lymph node. Patient was seen apparently in the emergency department had an ultrasound and she was diagnosed with a swollen lymph node secondary to diarrhea. Patient currently not having any infectious type symptoms, but does appear to have a tender lymph node at this time will be abdominal workup and CT scan with IV contrast. Decision to Disposition Date: Jul 10, 2018 Decision to Disposition Time: 11:12 Depart Departure Latest Vital Signs Vital Signs Date Time Temp Pulse Resp B/P (MAP) Pulse Ox O2 Delivery O2 Flow Rate FiO2 07/10/18 09:56 54 94 07/10/18 09:30 99/69 (79) 07/10/18 08:32 98.8 14 Room Air Impression: Primary Impression: Abscess Condition: Improved Disposition: HOME OR SELF-CARE Referrals: JOZEF FERREIRA MD Call to schedule a follow-up appointment if symptoms do not improve after completion of her antibiotics in 1 week's time. New Scripts Cephalexin (KEFLEX) 500 Mg Capsule 500 MG PO Q6H, #28 CAP 0 Refills TAKE ONE CAPSULE BY MOUTH EVERY SIX HOURS Prov: JUAN C HENDERSON MD 07/10/18 Patient Instructions: Abscess (ED) Additional Instructions: Take your antibiotics as directed. JUAN C HENDERSON MD Jul 10, 2018 08:29
[2018-07-10] MEDS ORDERED: KETOROLAC 30 MG/ML VIAL IVP ONE (08:50)
[2018-07-10] MEDS ORDERED: ONDANSETRON 4 MG/2 ML VIAL IVP ONE (08:50)
[2018-07-10] MEDS ORDERED: IOPAMIDOL 76% 100 ML INFUS BTL 100 ML ONE (09:24)
[2018-07-10 09:36] LABS: PLATELET COUNT, AUTOMATED 308 K/uL (150-450)
--- NOTE | 2018-07-10 10:07 | RADIOLOGY IMAGING REPORT ---
FACILITY: [facility] PATIENT NAME: Ju Cabrera : 1990 MR: [id number] V: [id number] EXAM DATE: ORDERING PHYSICIAN: JUAN C HENDERSON TECHNOLOGIST: Location: [facility] - [place] Patient: Ju Cabrera : 1990 Visit/Account:[id number] Date of Sevice: 07/10/2018 ADDENDUM #1 In the subcutaneous fat along the anterior upper pelvic wall is a 1.3 cm hyperattenuating nodule whic h is abutting the right rectus sheath. There is mild infiltrative changes seen in the surrounding fa t. This was not present on the prior CT from March 19, 2015 although a very tiny round hyperdens ity is seen in this location on the prior CT from April 11, 2016. Given the clinical history of te nderness to palpation in this region in the mild infiltrative changes seen in the surrounding fat inf ectious process is favored. Report Dictated By: Hilary Gordon MD at 07/10/2018 10:20 AM Report E-Signed By: Hilary Gordon MD at 07/10/2018 10:[address] ABDOMEN PELVIS W/ CON HISTORY: rlq pain times several months TECHNIQUE: Following administration of IV contrast contiguous axial images acquired through the abdom en/pelvis. Coronal and sagittal reformatting also performed.Dose Lowering Technique One of the following dose optimization techniques was utilized in the performance of this exam: Autom ated exposure control; adjustment of the mA and/or kV according to the patient's size; or use of an i terative reconstruction technique. Specific details can be referenced in the facility's radiology C T exam operational policy. CONTRAST: 75 mL Isovue-370 COMPARISON: April 11, 2016 FINDINGS: Visualized lung bases: Negative. Hepatobiliary: There is a small area of focal fatty infiltration adjacent to the falciform ligament Spleen: Negative. Adrenals: There is mild thickening of the left adrenal gland appears similar to the prior study Pancreas: Negative. Kidneys ureters or bladder: 1.4 cm cyst upper pole the left kidney Genitalia: Uterus not identified GI: There is no evidence of bowel obstruction or bowel wall thickening. There appears to be a tiny appendiceal stump with no surrounding inflammatory change Vessels/spaces/nodes: Negative. Bones/soft tissues: There are mild sclerotic changes along the inferior aspect of the SI joints that appears stable Additional findings: None pertinent. IMPRESSION: There is no evidence of bowel obstruction or bowel wall thickening. There appears to be a tiny appen diceal stump with no surrounding inflammatory change No evidence of urolithiasis, hydronephrosis or hydroureter Additional chronic findings as described Report Dictated By: Hilary Gordon MD at 07/10/2018 9:51 AM Report E-Signed By: Hilary Gordon MD at 07/10/2018 10:01 AM WSN:[email or web address]
[2018-07-10] MEDS ORDERED: CEPH-13 PO (10:33)
[2018-07-10] MEDS ORDERED: cefTRIAXone 1 GM VIAL IVP ONE (10:35)
[2018-07-10] MEDS ORDERED: OXYC-865 PO (11:13)
[2018-07-10 11:27] VITALS: BP 94/61
== END 2018-07-10 11:29 | disposition home or self-care (01) ==
LOC: ER 08:35
DX: L02.211 Cutaneous abscess of abdominal wall (principal)
CPT/HCPCS: 74177; 81001; 83690; 85025; 96374; 96375; 99284; J0696; J1885; J2405; Q9967; 82040; 82247; 82310; 82374; 82435; 82565; 82947; 84075; 84132; 84155; 84295; 84450; 84460; 84520

== ENCOUNTER 2018-10-29 10:45 | Emergency (ER) | payer SELFPAY ==
[2015-03-17 11:26] VITALS: Wt 74.8 kg
[~2018-10-29 10:45] MED LIST changes: +CEPH-13 PO; +OXYC-865 PO
[2018-10-29] MEDS ORDERED: NS(*) 0.9% 1000 ML BAG 1,000 ML IV ONE ×2 (10:58→12:25)
[2018-10-29] MEDS ORDERED: ONDANSETRON 4 MG/2 ML VIAL IVP ONE (11:00)
[2018-10-29] MEDS ORDERED: IOPAMIDOL 76% 150 ML INFUS BTL 150 ML ONE (11:15)
--- NOTE | 2018-10-29 11:23 | ER Report ---
History and Physical Time Seen By MD: 10:50 Hx. of Stated Complaint: ABDOMINAL PAIN SINCE 0300 THIS MORNING. NAUSEA AND VOMITTING. MOSTLY IN THE LOWER ABDOMEN BUT RADIATES TO THE BACK HPI/ROS CHIEF COMPLAINT: Abdominal pain HISTORY OF PRESENT ILLNESS: 28-year-old female frequent visitor to the emergency department for various pain complaints returns emergency department complaining of pain primarily the right and left lower quadrant. Patient denies any dysuria hematuria or pyuria patient denies any urinary bladder bowel incontinence patient denies any diarrhea. Patient states the pain has been going on for jami ral days getting worse she has been seen her before and had what she referred to as an abscess formation in her area near where her appendix was she no longer has her appendix no longer has her uterus as it was removed still has her ovaries. Patient's chest pain is sharp stabbing localized primarily again to the right and left lower quadrants made worse with position and movement. Patient has no chest pain fever chills or sweats or additional complaints noted no other obvious soliciting relieving factors REVIEW OF SYSTEMS: Respiratory: No cough, no dyspnea. Cardiovascular: No chest pain, no palpitations. Gastrointestinal: Abdominal pain Musculoskeletal: No back pain. Remainder of the 14 system rev: Yes Allergies: Coded Allergies: Sulfa (Sulfonamide Antibiotics) (Unverified Allergy, Intermediate, UNKNOWN, 07/10/18) prochlorperazine (Unverified Allergy, Intermediate, UNKNOWN, 07/10/18) promethazine (Verified Allergy, Intermediate, UNKNOWN, 07/10/18) codeine (Unverified Allergy, Unknown, UNKNOWN, 07/10/18) morphine (Verified Adverse Reaction, Unknown, NAUSEA, 07/10/18) Home Meds Discontinued Scripts Oxycodone Hcl/Acetaminophen (PERCOCET 5-325 MG TABLET) 1 Each Tablet, 1 EACH PO Q4H for PAIN, #20 TAB 0 Refills Prov:JUAN C HENDERSON MD 07/10/18 Cephalexin (KEFLEX) 500 Mg Capsule, 500 MG PO Q6H, #28 CAP 0 Refills TAKE ONE CAPSULE BY MOUTH EVERY SIX HOURS Prov:JUAN C HENDERSON MD 07/10/18 Reviewed Nurses Notes: Yes Old Medical Records Reviewed: Yes Hx Smoking: Yes Smoking Status: Current: Every Day Smoker Exposure to Second Hand Smoke?: Yes Hx Substance Use Disorder: No Hx Alcohol Use: Yes Constitutional Vital Sign - Last 24 Hours 10/29/18 10/29/18 10/29/18 10/29/18 10:45 10:48 10:49 11:00 Temp 98.5 Pulse 75 84 68 69 Resp 16 B/P (MAP) 95/66 95/66 (76) 113/86 (95) Pulse Ox 92 97 92 96 O2 Delivery Room Air 10/29/18 10/29/18 10/29/18 10/29/18 11:05 11:25 11:50 12:00 Pulse 74 77 75 B/P (MAP) 119/74 (89) Pulse Ox 95 95 94 10/29/18 10/29/18 10/29/18 10/29/18 12:10 12:30 12:50 13:10 Pulse 68 61 79 88 B/P (MAP) 100/63 (75) Pulse Ox 94 98 95 10/29/18 13:17 Pulse 84 Pulse Ox 90 Physical Exam General Appearance: [The patient is alert, has no immediate need for airway protection and no current signs of toxicity.] Appears uncomfortable Eyes: Pupils equal and round no injection. Respiratory: Chest is non tender, lungs are clear to auscultation. Cardiac: regular rate and rhythm [ ] Gastrointestinal: Abdomen is mildly tender to palpation primarily lower left and right quadrant with mild rebound and some guarding no peritonitis signs noted Musculoskeletal: Neck: Neck is supple and non tender. Extremities have full range of motion and are non tender. Skin: No rashes or lesions. [ ] DIFFERENTIAL DIAGNOSIS: After history and physical exam differential diagnosis was considered for colitis diverticulitis peritonitis inflammatory bowel disease abscess formation ovarian cyst rupture Medical Decision Making Data Points Result Diagram: 10/29/18 1117 10/29/18 1117 Laboratory Hematology Test 10/29/18 00:00 10/29/18 11:17 Urine Color Straw Urine Clarity Clear Urine pH 6.0 pH (4.8-9.5) Urine Specific [place] 1.047 Urine Protein Negative mg/dL (NEGATIVE) Urine Glucose (UA) Negative mg/dL (NEGATIVE) Urine Ketones Negative mg/dL (NEGATIVE) Urine Blood Small (NEGATIVE) Urine Nitrite Negative (NEGATIVE) Urine Bilirubin Negative (NEGATIVE) Urine Urobilinogen Negative mg/dL (0.2-1.9) Urine Leukocyte Esterase Negative (NEGATIVE) Urine RBC 7 /HPF (0-2/HPF) Urine WBC 1 /HPF (0-5/HPF) Urine Squamous Epithelial Cells Many /LPF (</=FEW) Urine Bacteria Few /HPF (NONE-FEW) Urine Mucus None /HPF (NONE-FEW) Red Blood Count 5.12 M/uL (4.17-5.56) Mean Corpuscular Volume 89.9 fL (80.0-96.0) Mean Corpuscular Hemoglobin 30.1 pg (26.0-33.0) Mean Corpuscular Hemoglobin Concent 33.5 g/dL (32.0-36.0) Red Cell Distribution Width 13.8 % (11.5-14.5) Mean Platelet Volume 7.1 fL (7.2-11.1) Neutrophils (%) (Auto) 77.0 % (39.4-72.5) Lymphocytes (%) (Auto) 14.8 % (17.6-49.6) Monocytes (%) (Auto) 5.7 % (4.1-12.4) Eosinophils (%) (Auto) 0.4 % (0.4-6.7) Basophils (%) (Auto) 2.1 % (0.3-1.4) Nucleated RBC Relative Count (auto) 0.0 /100WBC Neutrophils # (Auto) 8.2 K/uL (2.0-7.4) Lymphocytes # (Auto) 1.6 K/uL (1.3-3.6) Monocytes # (Auto) 0.6 K/uL (0.3-1.0) Eosinophils # (Auto) 0.0 K/uL (0.0-0.5) Basophils # (Auto) 0.2 K/uL (0.0-0.1) Nucleated RBC Absolute Count (auto) 0.01 K/uL Prothrombin Time 12.9 seconds (12.0-14.4) Prothromb Time International Ratio 0.97 Activated Partial Thromboplast Time 32 seconds (23-35) Sodium Level 138 mmol/L (137-145) Potassium Level 4.3 mmol/L (3.5-5.0) Chloride Level 105 mmol/L (98-107) Carbon Dioxide Level 28 mmol/L (22-31) Blood Urea Nitrogen 12 mg/dl (7-18) Creatinine 0.80 mg/dl (0.52-1.04) Glomerular Filtration Rate Calc > 60.0 Random Glucose 82 mg/dl (75-110) Calcium Level 9.3 mg/dl (8.4-10.2) Total Bilirubin 1.0 mg/dl (0.2-1.3) Aspartate Amino Transf (AST/SGOT) 19 U/L (0-35) Alanine Aminotransferase (ALT/SGPT) 22 U/L (0-56) Alkaline Phosphatase 72 U/L (0-126) Total Protein 7.3 g/dl (6.3-8.2) Albumin 4.3 g/dl (3.5-5.0) Lipase 64 U/L (23-300) Serum Alcohol < 10 mg/dl Chemistry Test 10/29/18 00:00 10/29/18 11:17 Urine Color Straw Urine Clarity Clear Urine pH 6.0 pH (4.8-9.5) Urine Specific [place] 1.047 Urine Protein Negative mg/dL (NEGATIVE) Urine Glucose (UA) Negative mg/dL (NEGATIVE) Urine Ketones Negative mg/dL (NEGATIVE) Urine Blood Small (NEGATIVE) Urine Nitrite Negative (NEGATIVE) Urine Bilirubin Negative (NEGATIVE) Urine Urobilinogen Negative mg/dL (0.2-1.9) Urine Leukocyte Esterase Negative (NEGATIVE) Urine RBC 7 /HPF (0-2/HPF) Urine WBC 1 /HPF (0-5/HPF) Urine Squamous Epithelial Cells Many /LPF (</=FEW) Urine Bacteria Few /HPF (NONE-FEW) Urine Mucus None /HPF (NONE-FEW) White Blood Count 10.6 k/uL (4.5-11.0) Red Blood Count 5.12 M/uL (4.17-5.56) Hemoglobin 15.4 g/dL (12.0-16.0) Hematocrit 46.0 % (34.0-47.0) Mean Corpuscular Volume 89.9 fL (80.0-96.0) Mean Corpuscular Hemoglobin 30.1 pg (26.0-33.0) Mean Corpuscular Hemoglobin Concent 33.5 g/dL (32.0-36.0) Red Cell Distribution Width 13.8 % (11.5-14.5) Platelet Count 386 K/uL (150-450) Mean Platelet Volume 7.1 fL (7.2-11.1) Neutrophils (%) (Auto) 77.0 % (39.4-72.5) Lymphocytes (%) (Auto) 14.8 % (17.6-49.6) Monocytes (%) (Auto) 5.7 % (4.1-12.4) Eosinophils (%) (Auto) 0.4 % (0.4-6.7) Basophils (%) (Auto) 2.1 % (0.3-1.4) Nucleated RBC Relative Count (auto) 0.0 /100WBC Neutrophils # (Auto) 8.2 K/uL (2.0-7.4) Lymphocytes # (Auto) 1.6 K/uL (1.3-3.6) Monocytes # (Auto) 0.6 K/uL (0.3-1.0) Eosinophils # (Auto) 0.0 K/uL (0.0-0.5) Basophils # (Auto) 0.2 K/uL (0.0-0.1) Nucleated RBC Absolute Count (auto) 0.01 K/uL Prothrombin Time 12.9 seconds (12.0-14.4) Prothromb Time International Ratio 0.97 Activated Partial Thromboplast Time 32 seconds (23-35) Glomerular Filtration Rate Calc > 60.0 Calcium Level 9.3 mg/dl (8.4-10.2) Total Bilirubin 1.0 mg/dl (0.2-1.3) Aspartate Amino Transf (AST/SGOT) 19 U/L (0-35) Alanine Aminotransferase (ALT/SGPT) 22 U/L (0-56) Alkaline Phosphatase 72 U/L (0-126) Total Protein 7.3 g/dl (6.3-8.2) Albumin 4.3 g/dl (3.5-5.0) Lipase 64 U/L (23-300) Serum Alcohol < 10 mg/dl Coagulation Test 10/29/18 11:17 Prothrombin Time 12.9 seconds Prothromb Time International Ratio 0.97 Activated Partial Thromboplast Time 32 seconds Toxicology Test 10/29/18 11:17 Serum Alcohol < 10 mg/dl Urinalysis Test 10/29/18 00:00 Urine Color Straw Urine Clarity Clear Urine pH 6.0 pH (4.8-9.5) Urine Specific [place] 1.047 Urine Protein Negative mg/dL (NEGATIVE) Urine Glucose (UA) Negative mg/dL (NEGATIVE) Urine Ketones Negative mg/dL (NEGATIVE) Urine Blood Small (NEGATIVE) Urine Nitrite Negative (NEGATIVE) Urine Bilirubin Negative (NEGATIVE) Urine Urobilinogen Negative mg/dL (0.2-1.9) Urine Leukocyte Esterase Negative (NEGATIVE) Urine RBC 7 /HPF (0-2/HPF) Urine WBC 1 /HPF (0-5/HPF) Urine Squamous Epithelial Cells Many /LPF (</=FEW) Urine Bacteria Few /HPF (NONE-FEW) Urine Mucus None /HPF (NONE-FEW) ED Course/Re-evaluation ED Course ED course 20-year-old female here with abdominal pain CT scan does show colitis most likely infectious etiology the original area of the right lower quadrant was more consistent with a probable scar tissue nothing new due to the fact that there was nothing grossly significant other than the colitis on the CT scan to help with an ultrasound she has had a incomplete hysterectomy so's concerned about there being ovarian cysts are very to there are 2 very small ovarian cyst noted but no torsion good blood flow bilaterally to give her some fentanyl for pain when she was in house and some fluids and some antibiotics we'll prescribe her antibiotics never follow up with general surgery Decision to Disposition Date: October 29, 2018 Decision to Disposition Time: 13:36 Depart Departure Latest Vital Signs Vital Signs Date Time Temp Pulse Resp B/P (MAP) Pulse Ox O2 Delivery O2 Flow Rate FiO2 10/29/18 13:17 84 90 10/29/18 12:30 100/63 (75) 10/29/18 10:48 98.5 16 Room Air Impression: Primary Impression: Colitis Condition: Improved Disposition: HOME OR SELF-CARE Referrals: JOZEF FERREIRA MD 5 Days New Scripts Metronidazole (FLAGYL) 500 Mg Tablet 500 MG PO BID for 7 Days, #14 TAB Prov: LAKEISHA LEONARD MD 10/29/18 Ciprofloxacin Hcl 500 Mg Tab (CIPRO 500 MG TAB) 500 Mg Tablet 500 MG PO BID for 7 Days, #20 0 Refills Prov: LAKEISHA LEONARD MD 10/29/18 Patient Instructions: Infectious Colitis (ED) LAKEISHA LEONARD MD October 29, 2018 11:23
[2018-10-29] MEDS ORDERED: fentaNYL CITR 100 MCG/2 ML AMP IVP ONE ×2 (11:25→12:25)
[2018-10-29 11:28] LABS: PLATELET COUNT, AUTOMATED 386 K/uL (150-450)
[2018-10-29 11:32] LABS: INR 0.97
--- NOTE | 2018-10-29 12:06 | RADIOLOGY IMAGING REPORT ---
FACILITY: [facility] PATIENT NAME: Ju Cabrera : 1990 MR: [id number] V: [id number] EXAM DATE: ORDERING PHYSICIAN: LAKEISHA LEONARD TECHNOLOGIST: Location: [facility] - [place], [place] Patient: Ju Cabrera : 1990 Visit/Account:[id number] Date of Sevice: 10/29/2018 EXAMINATION: CT Abdomen and Pelvis With Contrast 10/29/2018 10:58 AM HISTORY: pain TECHNIQUE: Spiral scan was through the abdomen and pelvis during injection of nonionic iodinated in travenous contrast. Contrast: 75 mL of IV Isovue 370. One of the following dose optimization techniques was utilized in the performance of this exam: Autom ated exposure control; adjustment of the mA and/or kV according to the patient's size; or use of an i terative reconstruction technique. Specific details can be referenced in the facility's radiology C T exam operational policy. COMPARISON STUDIES: 07/10/2018. FINDINGS: Liver / biliary: Subtle incidental focal fat or perfusional variation in the left lobe along the fiss ure for ligamentum teres. No significant acute finding. Pancreas: negative Spleen: negative Adrenal glands: negative Kidneys / retroperitoneum: Benign-appearing 1.5 cm upper pole cortical cyst on the left. Normal and symmetric enhancement. No kidney stone or obstruction. Pelvic structures: Hysterectomy. 1.5 cm cyst or follicle in the left ovary with what is probably a corpus luteum immediately in front of this. Right ovary is small or absent. Bowel / peritoneum / mesenteries: Minimal diverticulosis in the colon. Thickening of the descending and sigmoid colon. Appendix is either small or absent. Minimal free fluid in the pelvis. Vessels: negative Musculoskeletal / Body wall: 1.5 cm nodular density immediately in front of the lower right rectus mu sculature (series 2 image 120). This is essentially stable comparing with June but is a change co mparing with 2014. Lymph node assessment: negative Lower chest: negative IMPRESSION: 1. Thickened appearance of the descending and sigmoid colon suggestive of a nonspecific colitis. 2. 1.5 cm nodular density superficial to the lower right rectus is essentially stable since June. This may be progressive postsurgical scarring. Soft tissue neoplasm is less likely but cannot be e xcluded completely without at least clinical follow-up. 3. No significant acute finding otherwise. Patient does have mild background colonic diverticulosis but no focal diverticular inflammation. Report Dictated By: El Craft MD at 10/29/2018 11:50 AM Report E-Signed By: El Craft MD at 10/29/2018 12:01 PM WSN:[id number]
[2018-10-29 13:30] VITALS: BP 107/55
[2018-10-29] MEDS ORDERED: CIPR-344 PO (13:38)
[2018-10-29] MEDS ORDERED: METR-1 PO (13:38)
--- NOTE | 2018-10-29 14:14 | RADIOLOGY IMAGING REPORT ---
FACILITY: [facility] PATIENT NAME: Ju Cabrera : 1990 MR: [id number] V: [id number] EXAM DATE: ORDERING PHYSICIAN: LAKEISHA LEONARD TECHNOLOGIST: Location: [facility] - [place] Patient: Ju Cabrera : 1990 Visit/Account:[id number] Date of Sevice: 10/29/2018 EXAMINATION: Transvaginal pelvic ultrasound with duplex Doppler evaluation 10/29/2018 12:43 PM HISTORY: pain.; LMP: Not recorded COMPARISON STUDIES: CT abdomen and pelvis 10/29/2018. Pelvic ultrasound 03/24/2018 FINDINGS: Uterus: Surgically absent Ovaries: right ovary 2.3 x 2.0 x 1.9 cm, left ovary 3.2 x 2.4 x 3.5 cm, small follicles in the right ovary. In the left ovary there is a simple appearing cyst which measures 1.8 x 1.7 x 1.5 cm. Adjace nt to this there is a cyst with irregular or crenated dick measuring 1.5 x 1.6 x 1.6 cm consistent w ith an involuting functional cyst or evolving corpus luteum. Neither of these has clear internal ech ogenicity of a significant hemorrhagic component. Blood flow is documented in each ovary by Doppler ultrasound. Adnexa: negative Free pelvic fluid: none IMPRESSION: 1. Functional appearing cysts or follicles in the ovaries as above including what appears to be an i nvoluting cyst or evolving corpus luteum in the left. No clear hemorrhagic follicle by ultrasound. 2. Doppler shows flow within both ovaries without findings of torsion. Report Dictated By: El Craft MD at 10/29/2018 2:04 PM Report E-Signed By: El Craft MD at 10/29/2018 2:08 PM WSN:[id number]
== END 2018-10-29 13:58 | disposition home or self-care (01) ==
LOC: ER 10:50
DX: K52.9 Noninfective gastroenteritis and colitis, unspecified (principal)
CPT/HCPCS: 74177; 76830; 80320; 81001; 83690; 85025; 85610; 85730; 96361; 96374; 96375; 96376; 99284; J2405; J3010; J7030; Q9967; 82040; 82247; 82310; 82374; 82435; 82565; 82947; 84075; 84132; 84155; 84295; 84450; 84460; 84520